=== PATIENT | female | born 1980 | race Two or more races ===

== ENCOUNTER 2020-04-23 22:06 | Emergency (ER) | payer MEDICAID, OTHER ==
[~2020-04-23] VITALS: Ht 157.5 cm; Wt 77.1 kg
[2020-04-24] MEDS ORDERED: KETOROLAC TROMETH 30 MG/ML 1ML VIAL IV ONE ×2 (00:30→06:00)
[2020-04-24] MEDS ORDERED: ONDANSETRON HCL 4 MG/2 ML VIAL IV ONE (06:00)
[2020-04-24] MEDS ORDERED: fentaNYL CITRATE 100 MCG/2 ML VL IV ONE (07:45)
[2020-04-24] MEDS ORDERED: MIDAZOLAM HCL 5 MG/ML-1ML VIAL IV ONE (07:45)
[2020-04-24 10:33] VITALS: BP 132/80
== END 2020-04-24 10:59 | disposition still patient (30) ==
LOC: EDBD 22:06 → ER 22:06
DX: S52.591A Other fractures of lower end of right radius, initial encounter for closed fracture (principal); E78.5 Hyperlipidemia, unspecified; I10 Essential (primary) hypertension; Z87.891 Personal history of nicotine dependence; X58.XXXA Exposure to other specified factors, initial encounter; Y93.89 Activity, other specified; Y92.89 Other specified places as the place of occurrence of the external cause; Y99.8 Other external cause status
CPT/HCPCS: 25605; 73110; 96374; 96375; 96376; 99285; J1885; J2405; J2250